=== PATIENT | female | born 1995 | race Caucasian/White ===

== ENCOUNTER 2023-06-06 12:33 | Emergency (ER) | payer OTHER ==
[~2023-06-06] VITALS: Ht 170.2 cm; Wt 61.2 kg
[2023-06-06 12:43] VITALS: BP 116/77; TEMP 98.4
[2023-06-06 12:50] VITALS: O2SAT 98
[2023-06-06] MEDS ORDERED: ACETAMINOPHEN ES 500 MG TABLET ONE (13:15)
[2023-06-06] MEDS ORDERED: IBUPROFEN 600 MG TABLET ONE (13:15)
[2023-06-06] MEDS: ACETAMINOPHEN ES 500 MG TABLET PO ONE (13:16)
[2023-06-06] MEDS: IBUPROFEN 600 MG TABLET PO ONE (13:16)
[2023-06-06] MEDS ORDERED: IBUP-1953 PO (13:37)
== END 2023-06-06 14:20 | disposition home or self-care (01) ==
LOC: ER 12:33
DX: S09.90XA Unspecified injury of head, initial encounter (principal); S13.4XXA Sprain of ligaments of cervical spine, initial encounter; V43.52XA Car driver injured in collision with other type car in traffic accident, initial encounter; Y93.89 Activity, other specified; Y92.89 Other specified places as the place of occurrence of the external cause; Y99.8 Other external cause status
CPT/HCPCS: 70450-TC; 72125-TC